=== PATIENT | male | born 1975 | race Asian ===

== ENCOUNTER 2016-06-21 12:56 | Emergency (ER) | payer BC, OTHER ==
[~2016-06-21] VITALS: Ht 160 cm; Wt 79.5 kg
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
[2016-06-21 13:07] VITALS: Ht 160 cm; Wt 79.5 kg
[2016-06-21] MEDS ORDERED: KETOROLAC 15 MG INJ IM STA (14:04)
[2016-06-21] MEDS ORDERED: DIAZEPAM 5 MG TAB PO STA (14:04)
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
[2016-06-21] MEDS ORDERED: CYCL-319 PO (15:12)
[2016-06-21] MEDS ORDERED: NAPR-688 PO (15:12)
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
== END 2016-06-21 16:25 | disposition home or self-care (01) ==
LOC: FTE 12:56
DX: S50.02XA Contusion of left elbow, initial encounter (principal); S13.4XXA Sprain of ligaments of cervical spine, initial encounter; F17.210 Nicotine dependence, cigarettes, uncomplicated; R07.9 Chest pain, unspecified; V49.49XA Driver injured in collision with other motor vehicles in traffic accident, initial encounter
CPT/HCPCS: 71010; 73080; 96372; 99284; J1885